=== PATIENT | female | born 1945 | race Caucasian/White ===

== ENCOUNTER → 2018-02-03 | Outpatient (CLI) | payer MEDICARE, BC ==
--- NOTE | 2018-02-03 16:55 | BD ---
EXAMINATION TYPE: Axial Bone Density DATE OF EXAM: 02/03/2018 COMPARISON: NONE CLINICAL HISTORY: 72-year-old female postmenopausal SCREENING Height: 5' Weight: 178 FRAX RISK QUESTIONS: History of Fracture in Adulthood: y Secondary Osteoporosis: RISK FACTORS HISTORY OF: Diet low in dairy products/other sources of calcium: y Postmenopausal woman: y MEDICATIONS: Additional Medications: blood pressure, Additional History: EXAM MEASUREMENTS: Bone mineral densitometry was performed using the [employer]. Bone mineral density as measured about the Lumbar spine is: ----- L1-L4(G/cm2): 1.728 T Score Values are as follows: ----- L2: 5.7 ----- L3: 4.8 ----- L4: 3.7 ----- L1-L4: 4.6 Bone mineral density about the R hip (g/cm2): 1.134 Bone mineral density about the L hip (g/cm2): 1.104 T Score values are as follows: -----R Neck: 0.7 -----L Neck: 0.5 -----R Total: 1.5 -----L Total: 1.0 IMPRESSION: Normal (Values between +1 and -1 indicate normal bone mass). Consider repeating this study in 5 year s or sooner if there is some new clinical indication. NOTE: T-SCORE=SD OF THE YOUNG ADULT MEAN.
--- NOTE | 2018-02-04 10:15 | MM ---
Reason for exam: screening (asymptomatic). Last mammogram was performed 8 years and 11 months ago. History: Patient is postmenopausal. Family history of breast cancer in aunt. Took estrogen for 3 years 8 months. Physical Findings: A clinical breast exam by your physician is recommended on an annual basis and results should be correlated with mammographic findings. MG 3D Screening Mammo W/Cad Bilateral CC and MLO view(s) were taken. Prior study comparison: February 28, 2009, bilateral digital screening mammogram. January 17, 2005, bilateral screening mammogram. There are scattered fibroglandular densities. There is no discrete abnormality. Numerous small, benign axillary lymph nodes. ASSESSMENT: Negative, BI-RAD 1 RECOMMENDATION: Routine screening mammogram of both breasts in 1 year.
== END ==
LOC: RADMAMWWP 07:47
PROVIDERS: ATTEND Obstetrics & Gynecology
DX: Z12.31 Encounter for screening mammogram for malignant neoplasm of breast (principal); Z13.820 Encounter for screening for osteoporosis
CPT/HCPCS: 77063; 77067; 77080